=== PATIENT | male | born 1980 | race Caucasian/White ===

== ENCOUNTER 2016-07-11 15:02 | Inpatient (IN) ==
[2016-07-11] MEDS ORDERED: Naloxone 0.4 MG/ML INJ IVP PRN (17:57)
[2016-07-11] MEDS ORDERED: Ondansetron 4 MG/2 ML VIAL IVP PRN (17:57)
[2016-07-11] MEDS ORDERED: *HR* LORazepam 2 MG/ML VIAL IVP PRN ×3 (17:59)
--- NOTE | 2016-07-11 18:04 | Internal Med History&Physical ---
Date of Encounter: 07/11/16 Time of Encounter: 18:02 Assessment and Plan (1) Acute pancreatitis Current visit: Yes Status: Acute Acute hepatitis likely secondary to alcohol abuse Keep nothing by mouth and start clears in the morning Aggressive hydration, morphine for pain Check lipid panel in the morning and right upper quadrant ultrasound Qualifiers: Pancreatitis type: alcohol induced Acute pancreatitis complication: unspecified Qualified Code(s): K85.20 - Alcohol induced acute pancreatitis without necrosis or infection (2) Alcohol abuse Current visit: Yes Status: Acute Order Ativan IV with CIWA scale The patient was encouraged to stop drinking due to new diagnosis of acute pancreatitis (3) Hyponatremia Current visit: Yes Status: Acute Likely secondary to poor oral intake (4) Dehydration Current visit: Yes Status: Acute Secondary to pancreatitis and poor oral intake Continue IV fluids (5) Leukocytosis Current visit: Yes Status: Acute Likely secondary to pancreatitis Protonix IV for GI prophylaxis and subcutaneous tenderness hyperinflated to prophylaxis. The patient will be admitted for observation. He is a full code. Time spent on this admission 40 minutes. He is high risk for dehydration and complications from pancreatitis Qualifiers: Leukocytosis type: unspecified Qualified Code(s): D72.829 - Elevated white blood cell count, unspecified Internal Medicine - H&P: HPI Chief complaint: Abdominal pain Admitted From: Emergency Dept ([facility]) History of present illness: Mr. Fitzgerald is a 36 year old male with a past medical history of alcohol abuse went to [facility] as he complained of 3 days of constant abdominal pain, mainly epigastric radiating to his back and both of his right and left upper quadrants. The patient vomited once earlier today, denies any nausea the moment. Has not been able to eat since last night. His white blood cell count was 16.[address] scan of the abdomen showed acute pancreatitis. His heart rate was 106, he listed the pain is severe 5 out of 10 but now has decreased down to 3/10. His sodium is 132. The patient drinks heavily what he calls "4 LOCOS" drink, he ingests about 3 cans of 24 ounces on a daily basis. Denies any other complaint at the moment. Has not had pancreatitis or other related problems in the past. Lipase was 404 Past Med Surg Social Fam HX - Past Medical History Medical history: other (Alcohol abuse) Psychiatric history: no psych history - Past Surgical History Surgical History: other (Left fifth finger laceration repair) - Social History Smoking Status: Never smoker Smokeless Tobacco Status: No Alcohol use: heavy (three 24 onz 4 locos daily) Drug use: none - Additional Family History Additional family history: No family history Internal Medicine - H&P: Meds No Known Home Drugs 07/11/16 [History] Allergies No Known Allergies Allergy (Verified 07/11/16 12:47) All Systems PM: A 10-system review of systems was performed and is negative for pertinent findings except as documented above in the HPI. Review of systems: Denies any shortness of breath, no chest pain, no dysuria. Other systems out of the 10 review negative. No diarrhea - Head Head exam: Present: atraumatic, normocephalic Additional comments: Dry mucosa - Eye Eye exam: Present: PERRL, conjuntiva pink, sclera anicteric Pupils: Present: PERRL - Neck Neck exam general surgery: Present: supple, trachea midline. Absent: lymphadenopathy - Respiratory Respiratory exam: Present: CTAB. Absent: accessory muscle use, rales, rhonchi, wheezes - Cardiovascular Cardiovascular exam: Present: RRR, +S1, +S2. Absent: diastolic murmur, gallop, rubs, systolic murmur - GI/Abdominal GI/Abdominal exam: Present: normal bowel sounds, soft, tenderness (Epigastric tenderness, no rebound), no peritoneal signs. Absent: distended, rebound - Extremities Exam Extremities exam: Present: warm, radial pulses palpable and symetrical. Absent : calf tenderness, cyanotic, pedal edema - Neurological Exam Neurological exam: Present: CN II-XII intact, oriented X3, no focal deficits. Absent: pronater drift, facial droop, speech deficit - Skin Skin exam: Present: dry, intact - Other Additional findings: Blood pressure 142/90 heart rate 106 respiratory rate 16 temperature 97.5 saturating 97% on room air Internal Med - H&P Results - Labs Labs: White blood cell count 16.7 hemoglobin 14.5 L 171 lipase 400 sodium 132 potassium 3.6 chloride 97 CO2 12 BUN 11 creatinine 1.02 glucose 129
[2016-07-11] MEDS: 0.9 % Sodium Chloride 1,000 ML IVC SCH (18:43)
[2016-07-11] MEDS: Pantoprazole 40 MG VIAL IVP SCH (18:43)
[2016-07-12] MEDS: 0.9 % Sodium Chloride 1,000 ML IVC SCH ×3 (00:31→23:43)
[2016-07-12 03:28] LABS: BUN/Creatinine Ratio 11 (6-26); Blood Urea Nitrogen 10 mg/dL (8-26); Calcium 7.8 mg/dL (8.6-10.8); Carbon Dioxide 21 mEq/L (19-29); Chloride 103 mEq/L (98-109); Cholesterol 288 mg/dL (< 200); Glucose 99 mg/dL (70-99); HDL Cholesterol 16 mg/dL (40-59); Osmolality,Calculated 279 (280-300); Potassium 3.5 mEq/L (3.5-4.5); Sodium 135 mEq/L (136-145); Triglycerides 672 mg/dL (< 150); eGFR For African Americans > 60 (> 60); eGFR For Non-African Americans > 60 (> 60)
[2016-07-12] MEDS: Acetaminophen 325 MG TABLET PO PRN ×2 (04:10→15:19)
[2016-07-12 04:31] LABS: Hemoglobin 11.5 g/dL (12.9-16.9); Mean Corpuscular HGB Conc 33.8 g/dL (31.6-35.5); Mean Corpuscular Hemoglobin 30.9 pg (28.0-33.3); Mean Corpuscular Volume 91.4 fL (83.0-100.0); Mean Platelet Volume 10.9 fL (9.4-12.4); Platelet Count 161 K/mcL (140-400); Red Blood Count 3.72 M/mcL (4.19-5.50); Red Cell Distribution Width 12.5 % (11.5-14.5)
[2016-07-12] MEDS: Pantoprazole 40 MG VIAL IVP SCH (08:42)
--- NOTE | 2016-07-12 16:43 | Internal Med Progress Note ---
Date of Encounter: 07/12/16 Time of Encounter: 10:00 - Assessment and plan (1) Acute pancreatitis Current Visit: Yes Status: Acute Assessment and plan: Possibly due to alcoholism. US liver done, no gall stone. Continue IV fluid, advanced diet as tolerated, follow-up lipase level. Qualifiers: Pancreatitis type: alcohol induced Acute pancreatitis complication: unspecified Qualified Code(s): K85.20 - Alcohol induced acute pancreatitis without necrosis or infection (2) Hyperlipidemia Current Visit: Yes Status: Acute Assessment and plan: Will repeat a lipid panel. Patient may need to discharge on anti-dyslipidemia medications Qualifiers: Hyperlipidemia type: mixed hyperlipidemia Qualified Code(s): E78.2 - Mixed hyperlipidemia (3) DVT prophylaxis Current Visit: Yes Status: Acute Assessment and plan: Heparin subcutaneously (4) Alcohol abuse Current Visit: Yes Status: Acute Assessment and plan: We will closely monitor patient. CIWA score every 4 hours. Withdrawal precautions (5) Leukocytosis Current Visit: Yes Status: Acute Assessment and plan: Likely reactive. Follow-up CBC Qualifiers: Leukocytosis type: unspecified Qualified Code(s): D72.829 - Elevated white blood cell count, unspecified - Time Spent With Patient 25 - 35 minutes - Subjective Interval history: Patient is a 36-year-old male admitted from [facility] for acute pancreatitis. His past medical history is significant for alcoholism. I saw and examined the patient today. He is awake, alert, oriented 3. In no acute distress. No fever, no nausea no vomiting, no abdominal pain. Vital signs stable. We will continue IV fluid, start to advance diet as tolerable. Follow-up lipase level. Patient has a hyperlipidemia, we will repeat a lipid panel tomorrow. - Constitutional Vitals: Temp Pulse Resp BP Pulse Ox 98.7 F 87 16 150/82 98 07/12/16 14:36 07/12/16 14:36 07/12/16 14:36 07/12/16 14:36 07/12/16 14:36 General appearance: Present: A&O X 3, no acute distress, answers questions appropriately - Head Head exam: Present: atraumatic, normocephalic - Eye Eye exam: Present: PERRL, conjuntiva pink, sclera anicteric Pupils: Present: PERRL - Neck Neck exam general surgery: Present: supple, trachea midline. Absent: lymphadenopathy - Respiratory Respiratory exam: Present: CTAB. Absent: accessory muscle use, rales, rhonchi, wheezes - Cardiovascular Cardiovascular exam: Present: RRR, +S1, +S2. Absent: diastolic murmur, gallop, rubs, systolic murmur - GI/Abdominal GI/Abdominal exam: Present: normal bowel sounds, soft, tenderness (Mild tenderness on RUQ, no guarding no rebound.), no peritoneal signs. Absent: distended - Extremities Exam Extremities exam: Present: warm, radial pulses palpable and symetrical. Absent : calf tenderness, cyanotic, pedal edema - Neurological Exam Neurological exam: Present: CN II-XII intact, oriented X3, no focal deficits. Absent: pronater drift, facial droop, speech deficit - Skin Skin exam: Present: dry, intact Internal Medicine: Result - Labs CBC & Chem 7: 07/12/16 04:22 07/12/16 02:51 Labs: Short CBC 07/12/16 Range/Units 04:22 WBC 13.4 H (4.3-11.1) K/mcL Hgb 11.5 L D (12.9-16.9) g/dL Hct 34.0 L (37.5-50.1) % Plt Count 161 (140-400) K/mcL BMP 07/12/16 02:51 Sodium 135 L Potassium 3.5 Chloride 103 Carbon Dioxide 21 BUN 10 Creatinine 0.89 Glucose 99 Calcium 7.8 L - Impressions Impressions Gallbladder Ultrasound 07/12/16 09:00 IMPRESSION: 1. Fatty infiltration of the liver. 2. Normal gallbladder. D/ / Philippe Mack MD / Philippe Mack MD Interpreting Provider: Philippe Mack MD Consult Discharge Plan - Plan Referrals: Irving Quevedo MD [Non-Partnered Physician] - 07/27/16 11:00 am
[2016-07-12] MEDS: *HR* Morphine 2 MG/ML SYRINGE IVP PRN ×2 (19:38→23:42)
[2016-07-12] MEDS: *HR* Heparin 5,000 UNIT/ML VIAL SQ SCH (19:38)
[2016-07-13] MEDS: *HR* Morphine 2 MG/ML SYRINGE IVP PRN ×2 (05:09→17:15)
[2016-07-13 06:01] LABS: Basophils % 0.2 %; Eosinophils # 0.2 K/mcL (0.0-0.6); Eosinophils % 1.2 %; Hematocrit 30.4 % (37.5-50.1); Hemoglobin 10.2 g/dL (12.9-16.9); Immature Granulocytes % 0.6 % (0-4); Lymphocytes # 1.8 K/mcL (0.6-4.6); Lymphocytes % 14.7 %; Mean Corpuscular HGB Conc 33.6 g/dL (31.6-35.5); Mean Corpuscular Hemoglobin 31.2 pg (28.0-33.3); Mean Platelet Volume 11.1 fL (9.4-12.4); Monocytes # 1.4 K/mcL (0.0-1.3); Monocytes % 11.5 %; Neutrophils # 8.9 K/mcL (1.6-8.9); Platelet Count 166 K/mcL (140-400); Red Blood Count 3.27 M/mcL (4.19-5.50); Red Cell Distribution Width 12.3 % (11.5-14.5); Segmented Neutrophils % 71.8 %
[2016-07-13] MEDS: *HR* Heparin 5,000 UNIT/ML VIAL SQ SCH ×2 (06:03→17:53)
[2016-07-13 06:16] LABS: BUN/Creatinine Ratio 5 (6-26); Calcium 7.9 mg/dL (8.6-10.8); Carbon Dioxide 22 mEq/L (19-29); Chloride 103 mEq/L (98-109); Chol/HDL Ratio 11.7 (0-4.9); Glucose 94 mg/dL (70-99); HDL Cholesterol 19 mg/dL (40-59); LDL Cholesterol,Calculated 143 mg/dL (0-99); Lipase 84 Units/L (8-78); Osmolality,Calculated 275 (280-300); Potassium 2.9 mEq/L (3.5-4.5); Sodium 134 mEq/L (136-145); Triglycerides 307 mg/dL (< 150); eGFR For African Americans > 60 (> 60); eGFR For Non-African Americans > 60 (> 60)
[2016-07-13 06:17] LABS: Blood Urea Nitrogen 4 mg/dL (8-26); Cholesterol 223 mg/dL (< 200)
[2016-07-13] MEDS: 0.9 % Sodium Chloride 1,000 ML IVC SCH (08:26)
[2016-07-13] MEDS: Pantoprazole 40 MG VIAL IVP SCH (08:26)
[2016-07-13] MEDS ORDERED: Magnesium Sulfate 2 GM in D5% in Water 100 ML IVPB ONE (09:46)
[2016-07-13] MEDS: Potassium Chloride 40 MEQ, Lidocaine 1% 2 ML in D5% in Water 500 ML IVPB SCH ×2 (10:46→16:23)
--- NOTE | 2016-07-13 15:58 | Internal Med Progress Note ---
Date of Encounter: 07/13/16 Time of Encounter: 15:56 - Assessment and plan (1) Acute pancreatitis Current Visit: Yes Status: Acute Assessment and plan: Possibly due to alcoholism. US liver done, no gall stone. Continue IV fluid, advanced diet as tolerated, will discharge tomorrow in a.m. The patient was strongly advised to stop alcohol intake. He states that drinks three 4 elias every night. Qualifiers: Pancreatitis type: alcohol induced Acute pancreatitis complication: unspecified Qualified Code(s): K85.20 - Alcohol induced acute pancreatitis without necrosis or infection (2) Alcohol abuse Current Visit: Yes Status: Acute Assessment and plan: We will closely monitor patient. CIWA score every 4 hours. Withdrawal precautions (3) DVT prophylaxis Current Visit: Yes Status: Acute Assessment and plan: Heparin subcutaneously (4) Hyperlipidemia Current Visit: Yes Status: Acute Qualifiers: Hyperlipidemia type: mixed hyperlipidemia Qualified Code(s): E78.2 - Mixed hyperlipidemia (5) Hyponatremia Current Visit: Yes Status: Acute - Time Spent With Patient 25 - 35 minutes - Subjective Interval history: This is my first encounter with the patient. The patient was seen and examined on rounds. He is still complaining of epigastric pain. Denies nausea or vomiting. Is tolerating diet. - Constitutional Vitals: Temp Pulse Resp BP Pulse Ox 98.3 F 95 16 131/82 98 07/13/16 14:50 07/13/16 14:50 07/13/16 14:50 07/13/16 14:50 07/13/16 14:50 General appearance: Present: A&O X 3, no acute distress, answers questions appropriately - Head Head exam: Present: atraumatic, normocephalic - Eye Eye exam: Present: PERRL, conjuntiva pink, sclera anicteric Pupils: Present: PERRL - Neck Neck exam general surgery: Present: supple, trachea midline. Absent: lymphadenopathy - Respiratory Respiratory exam: Present: CTAB. Absent: accessory muscle use, rales, rhonchi, wheezes - Cardiovascular Cardiovascular exam: Present: RRR, +S1, +S2. Absent: diastolic murmur, gallop, rubs, systolic murmur - GI/Abdominal GI/Abdominal exam: Present: normal bowel sounds, soft, no peritoneal signs. Absent: distended, tenderness - Extremities Exam Extremities exam: Present: warm, radial pulses palpable and symetrical. Absent : calf tenderness, cyanotic, pedal edema - Neurological Exam Neurological exam: Present: CN II-XII intact, oriented X3, no focal deficits. Absent: pronater drift, facial droop, speech deficit - Skin Skin exam: Present: dry, intact Internal Medicine: Result - Labs CBC & Chem 7: 07/13/16 04:54 07/13/16 04:54 Labs: Short CBC 07/13/16 Range/Units 04:54 WBC 12.3 H (4.3-11.1) K/mcL Hgb 10.2 L (12.9-16.9) g/dL Hct 30.4 L (37.5-50.1) % Plt Count 166 (140-400) K/mcL Neutrophils # 8.9 (1.6-8.9) K/mcL BMP 07/13/16 04:54 Sodium 134 L Potassium 2.9 L Chloride 103 Carbon Dioxide 22 BUN 4 L Creatinine 0.79 Glucose 94 Calcium 7.9 L Consult Discharge Plan - Plan Referrals: Irving Quevedo MD [Non-Partnered Physician] - 07/27/16 11:00 am
[2016-07-13] MEDS: Acetaminophen 325 MG TABLET PO PRN (16:25)
[2016-07-14] MEDS: *HR* Morphine 2 MG/ML SYRINGE IVP PRN (02:06)
[2016-07-14] MEDS: 0.9 % Sodium Chloride 1,000 ML IVC SCH ×2 (02:07→10:11)
[2016-07-14 06:02] LABS: Basophils % 0.3 %; Eosinophils # 0.2 K/mcL (0.0-0.6); Eosinophils % 1.4 %; Hematocrit 30.4 % (37.5-50.1); Hemoglobin 10.1 g/dL (12.9-16.9); Immature Granulocytes % 0.9 % (0-4); Lymphocytes # 1.5 K/mcL (0.6-4.6); Lymphocytes % 13.5 %; Mean Corpuscular HGB Conc 33.2 g/dL (31.6-35.5); Mean Corpuscular Hemoglobin 31.2 pg (28.0-33.3); Mean Corpuscular Volume 93.8 fL (83.0-100.0); Mean Platelet Volume 10.2 fL (9.4-12.4); Monocytes # 1.3 K/mcL (0.0-1.3); Monocytes % 11.6 %; Neutrophils # 8.2 K/mcL (1.6-8.9); Platelet Count 210 K/mcL (140-400); Red Blood Count 3.24 M/mcL (4.19-5.50); Red Cell Distribution Width 12.3 % (11.5-14.5); Segmented Neutrophils % 72.3 %
[2016-07-14 06:19] LABS: BUN/Creatinine Ratio 4 (6-26); Blood Urea Nitrogen 3 mg/dL (8-26); Calcium 8.4 mg/dL (8.6-10.8); Carbon Dioxide 24 mEq/L (19-29); Chloride 104 mEq/L (98-109); Glucose 104 mg/dL (70-99); Magnesium 1.8 mg/dL (1.6-2.6); Osmolality,Calculated 281 (280-300); Potassium 3.3 mEq/L (3.5-4.5); Sodium 137 mEq/L (136-145); eGFR For African Americans > 60 (> 60); eGFR For Non-African Americans > 60 (> 60)
[2016-07-14] MEDS: *HR* Heparin 5,000 UNIT/ML VIAL SQ SCH (06:27)
[2016-07-14 07:41] VITALS: BP 144/81
[2016-07-14] MEDS: Pantoprazole 40 MG VIAL IVP SCH (09:13)
--- NOTE | 2016-07-14 11:26 | Discharge Summary ---
Date of Encounter: 07/14/16 Time of Encounter: 11:24 - Discharge Diagnosis (1) Acute pancreatitis Priority: Primary Status: Acute Qualifiers: Pancreatitis type: alcohol induced Acute pancreatitis complication: unspecified Qualified Code(s): K85.20 - Alcohol induced acute pancreatitis without necrosis or infection (2) Alcohol abuse Priority: Secondary Status: Acute (3) DVT prophylaxis Priority: Secondary Status: Acute (4) Hyperlipidemia Priority: Secondary Status: Acute Qualifiers: Hyperlipidemia type: mixed hyperlipidemia Qualified Code(s): E78.2 - Mixed hyperlipidemia (5) Hyponatremia Priority: Secondary Status: Acute - Discharge Medications Home Medications: No Known Home Drugs 07/11/16 [History] Allergies/Adverse Reactions: Allergies No Known Allergies Allergy (Verified 07/12/16 10:34) Procedures/tests Complete & Pending: Procedures Performed prior 72 hours Category Date Time Status US gall bladder [US] Stat Exams 07/12/16 09:00 Completed Date of admission: 07/12/16 16:45 Primary care physician: PCP NO Discharging clinician: Brandon Meier Anticipated date of discharge: 07/14/16 - Patient Status Disposition: Home, Self-Care Condition: Fair Functional capacity at discharge: independent ambulation Overall status at discharge: patient is back to baseline - Discharge Instructions Follow Up With: Irving Quevedo MD [Non-Partnered Physician] - 07/27/16 11:00 am - Diet and Activity Activity: increase activity as tolerated Diet: advance to your usual diet Interval History: Mr. Fitzgerald is a 36 year old male with a past medical history of alcohol abuse went to [facility] as he complained of 3 days of constant abdominal pain, mainly epigastric radiating to his back and both of his right and left upper quadrants. The patient vomited once earlier today, denies any nausea the moment. Has not been able to eat since last night. His white blood cell count was 16.[address] scan of the abdomen showed acute pancreatitis. His heart rate was 106, he listed the pain is severe 5 out of 10 but now has decreased down to 3/10. His sodium is 132. The patient drinks heavily what he calls "4 LOCOS" drink, he ingests about 3 cans of 24 ounces on a daily basis. Denies any other complaint at the moment. Has not had pancreatitis or other related problems in the past. Lipase was 404 Hospital course: Mr. Fitzgerald is a 36 year old male admitted due to abdominal pain secondary to acute pancreatitis. Etiology of pancreatitis likely alcohol abuse. The patient is stable, has tolerated diet without nausea or vomiting. No fever , no leukocytosis. Vital signs are otherwise stable. The patient will be discharged home today. he was strongly advised to stop alcohol intake. - Time Spent with Patient Total time spent providing and/or coordinating discharge services: Greater than 30 minutes - Constitutional Vitals: Temp Pulse Resp BP Pulse Ox 97.7 F 94 16 144/81 96 07/14/16 07:38 07/14/16 07:38 07/14/16 07:38 07/14/16 07:38 07/14/16 07:38 General appearance: Present: A&O X 3, no acute distress, answers questions appropriately - Head Head exam: Present: atraumatic, normocephalic - Eye Eye exam: Present: PERRL, conjuntiva pink, sclera anicteric Pupils: Present: PERRL - Neck Neck exam general surgery: Present: supple, trachea midline. Absent: lymphadenopathy - Respiratory Respiratory exam: Present: CTAB. Absent: accessory muscle use, rales, rhonchi, wheezes - Cardiovascular Cardiovascular exam: Present: RRR, +S1, +S2. Absent: diastolic murmur, gallop, rubs, systolic murmur - GI/Abdominal GI/Abdominal exam: Present: normal bowel sounds, soft, no peritoneal signs. Absent: distended, tenderness - Extremities Exam Extremities exam: Present: warm, radial pulses palpable and symetrical. Absent : calf tenderness, cyanotic, pedal edema - Neurological Exam Neurological exam: Present: CN II-XII intact, oriented X3, no focal deficits. Absent: pronater drift, facial droop, speech deficit - Skin Skin exam: Present: dry, intact
== END 2016-07-14 13:16 | disposition home or self-care (01) | DRG 439 ==
LOC: 3ANU → SUATTDRO 07-12 16:45
PROVIDERS: ADMIT Internal Medicine; ATTEND Internal Medicine